=== PATIENT | female | born 1985 | race Caucasian/White ===

== ENCOUNTER 2023-12-12 14:57 | Inpatient (IN) | payer OTHER ==
[~2023-12-12] VITALS: Ht 157.5 cm; Wt 57.3 kg
[2023-12-12 16:21] LABS: BASOPHILS % (AUTO) 0.6 % (0.0-2.0); EOSINOPHILS % (AUTO) 0.8 % (1.0-6.0); HEMATOCRIT 43.6 % (36-46); HEMOGLOBIN 14.8 g/dL (12.0-16.0); LYMPHOCYTES # (AUTO) 2.6 K/uL (1.0-4.8); LYMPHOCYTES % (AUTO) 38.6 % (22.0-44.0); MEAN CORPUSCULAR HEMOGLOBIN 31.3 pg (26.0-34.0); MEAN CORPUSCULAR HGB CONC 33.9 G/dL (31.0-37.0); MEAN CORPUSCULAR VOLUME 93 fL (80-100); MONOCYTES # (AUTO) 0.5 K/uL (0.1-1.0); NEUTROPHILS # (AUTO) 3.6 K/uL (1.8-7.7); PLATELET COUNT (AUTO) 220 K/uL (150-450); RED BLOOD CELL COUNT(AUTO) 4.71 MIL/uL (4.00-5.20); RED CELL DISTRIBUTION WIDTH 15.9 % (11.5-14.5); WHITE BLOOD COUNT (AUTO) 6.8 K/uL (4.5-11.0)
[2023-12-12 16:34] LABS: ALANINE AMINOTRANSFERASE 23 U/L (12-78); ALBUMIN 3.5 g/dL (3.4-5.0); ALKALINE PHOSPHATASE 142 U/L (46-116); ANION GAP 15 mmol/L (8-16); ASPARTATE AMINOTRANSFERASE 36 U/L (15-37); BILIRUBIN,TOTAL 0.4 mg/dL (0.1-1.0); CALCIUM, TOTAL 8.1 mg/dL (8.8-10.5); CARBON DIOXIDE 25 mmol/L (22-29); CHLORIDE 104 mmol/L (98-107); CREATININE 0.83 mg/dL (0.60-1.30); GLOMERULAR FILTR. RATE CALC > 60 mL/min (>60); GLUCOSE,RANDOM 150 mg/dL (70-110); SODIUM SERUM 144 mmol/L (136-145); TOTAL PROTEIN, SERUM 8.2 g/dL (6.4-8.2); UREA NITROGEN, BLOOD 5 mg/dL (7-18)
[2023-12-12 16:38] LABS: POTASSIUM 2.8 mmol/L (3.5-5.1)
[2023-12-12 16:46] LABS: ALCOHOL, BLOOD (SERUM) 326 mg/dL (0-10)
[2023-12-12] MEDS: ACETAMINOPHEN 500 MG TABLET PO ONE (17:18)
[2023-12-12] MEDS: MAGNESIUM SULFATE 2 GM/WATER 50 ML IV ONE (17:18)
[2023-12-12] MEDS: METOCLOPRAMIDE HCL 5 MG/ML 2 ML VIAL IVP ONE (17:18)
[2023-12-12] MEDS: POTASSIUM CHL 10 MEQ/WATER 50 ML IV SCH (17:18)
[2023-12-12] MEDS: THIAMINE 100 MG/ML 2 ML VIAL IVP ONE (17:19)
[2023-12-12] MEDS: LORazepam 2 MG/ML VIAL IVP ONE (17:19)
[2023-12-12] MEDS: SODIUM CHLORIDE 0.9% 1,000 ML IV ONE (17:50)
[2023-12-12] MEDS ORDERED: SERT-439 PO (19:35)
[2023-12-12] MEDS ORDERED: HYDR-4527 PO (19:35)
[2023-12-12] MEDS ORDERED: QUET50TA24 PO (19:35)
[2023-12-12] MEDS ORDERED: CARV6.2534 PO (19:35)
[2023-12-12] MEDS ORDERED: NICO-803 TD (19:41)
[2023-12-12] MEDS ORDERED: MIRT-92 PO (19:41)
[2023-12-12] MEDS ORDERED: CARV3.1231 PO (19:41)
[2023-12-12] MEDS ORDERED: LANS-78 PO (19:41)
[2023-12-12] MEDS ORDERED: LACT10SO10 PO (19:41)
[2023-12-12] MEDS ORDERED: FOLI-130 PO (19:41)
[2023-12-12] MEDS ORDERED: GABA-1181 PO (19:41)
[2023-12-12] MEDS ORDERED: LINA72CA PO (19:41)
[2023-12-12] MEDS ORDERED: ACAM333T7 PO (19:41)
[2023-12-12 20:30] LABS: AMPHET/METH SCREEN,URINE NEGATIVE (NEGATIVE); BARBITURATE SCREEN, URINE NEGATIVE (NEGATIVE); BENZODIAZEPINES SCREEN,URINE POSITIVE (NEGATIVE); CANNABINOID SCREEN,URINE POSITIVE (NEGATIVE); COCAINE SCREEN,URINE NEGATIVE (NEGATIVE); METHADONE SCREEN, URINE NEGATIVE (NEGATIVE); OPIATE SCREEN,URINE NEGATIVE (NEGATIVE); PHENCYCLIDINE SCREEN,URINE NEGATIVE (NEGATIVE)
[2023-12-12 20:32] LABS: ALCOHOL, URINE DRUG SCREEN POSITIVE (NEGATIVE)
[2023-12-12] MEDS: ONDANSETRON HCL 4 MG/2 ML VIAL IVP PRN (21:26)
[2023-12-12 22:16] VITALS: BP 140/98; PULSE 92; RESP 19; TEMP 98.8; O2SAT 100
[2023-12-12] MEDS: ACETAMINOPHEN 325 MG TABLET PO PRN (22:20)
[2023-12-12 23:00] VITALS: BP 140/98; PULSE 92; RESP 19; TEMP 98.8; O2SAT 100
[2023-12-12] MEDS: LORazepam 2 MG TABLET PO PRN (23:26)
[2023-12-12] MEDS: HEPARIN SODIUM,PORCINE 5,000 UNITS/ML VIAL SQ SCH (23:26)
[2023-12-13] MEDS: 1: MAGNESIUM SULFATE 2 GM, MVI, ADULT NO.1 WITH VIT K 10 ML, THIAMINE 100 MG, FOLIC ACID IV SCH (00:25)
[2023-12-13 05:00] VITALS: BP 123/79; PULSE 94; RESP 20; TEMP 98.5; O2SAT 96
[2023-12-13 06:44] LABS: BASOPHILS % (AUTO) 0.4 % (0.0-2.0); EOSINOPHILS % (AUTO) 0.6 % (1.0-6.0); HEMATOCRIT 35.8 % (36-46); HEMOGLOBIN 12.2 g/dL (12.0-16.0); LYMPHOCYTES # (AUTO) 2.7 K/uL (1.0-4.8); LYMPHOCYTES % (AUTO) 39.3 % (22.0-44.0); MEAN CORPUSCULAR HGB CONC 34.1 G/dL (31.0-37.0); MEAN CORPUSCULAR VOLUME 94 fL (80-100); MONOCYTES # (AUTO) 0.6 K/uL (0.1-1.0); NEUTROPHILS # (AUTO) 3.5 K/uL (1.8-7.7); NEUTROPHILS % (AUTO) 50.7 % (40.0-70.0); RED BLOOD CELL COUNT(AUTO) 3.82 MIL/uL (4.00-5.20); RED CELL DISTRIBUTION WIDTH 15.8 % (11.5-14.5)
[2023-12-13 07:02] LABS: PLATELET COUNT (AUTO) 167 K/uL (150-450)
[2023-12-13 07:13] LABS: ANION GAP 13 mmol/L (8-16); CALCIUM, TOTAL 6.9 mg/dL (8.8-10.5); CARBON DIOXIDE 21 mmol/L (22-29); CHLORIDE 101 mmol/L (98-107); CREATININE 0.74 mg/dL (0.60-1.30); GLOMERULAR FILTR. RATE CALC > 60 mL/min (>60); GLUCOSE,RANDOM 114 mg/dL (70-110); SODIUM SERUM 135 mmol/L (136-145); UREA NITROGEN, BLOOD 3 mg/dL (7-18)
[2023-12-13 07:26] LABS: POTASSIUM 2.9 mmol/L (3.5-5.1)
[2023-12-13] MEDS ORDERED: MAGNESIUM SULFATE 2 GM/WATER 50 ML IV PRN (07:30)
[2023-12-13] MEDS ORDERED: MAGNESIUM SULFATE 4 GM/WATER 100 ML IV PRN (07:30)
[2023-12-13] MEDS ORDERED: MAGNESIUM OXIDE 400 MG TABLET PO PRN (07:30)
[2023-12-13] MEDS: LORazepam 2 MG TABLET PO PRN (08:05)
[2023-12-13] MEDS: POTASSIUM CHL 10 MEQ/WATER 50 ML IV PRN (08:08)
[2023-12-13 09:01] VITALS: BP 110/78; PULSE 94; RESP 18; TEMP 98.4; O2SAT 98
[2023-12-13] MEDS: BUTALBITAL/ACETAMINOPHEN/CAFFEINE 50-325-40 MG TABLET PO ONE (12:15)
[2023-12-13 12:31] VITALS: BP 117/87; PULSE 95; RESP 18; TEMP 98.2; O2SAT 98
[2023-12-13] MEDS ORDERED: SODIUM CHLORIDE 0.9% 1,000 ML ONE (13:59)
[2023-12-13 15:56] VITALS: BP 116/82; PULSE 84; RESP 18; TEMP 99.2; O2SAT 98
[2023-12-13] MEDS: HYDROCODONE/ACETAMINOPHEN 5-325 MG TABLET PO PRN (19:10)
[2023-12-13 19:23] VITALS: BP 122/86; PULSE 86; RESP 18; TEMP 98.1; O2SAT 98
[2023-12-13] MEDS: POTASSIUM CHLORIDE 20 MEQ ER TABLET PO PRN (23:03)
[2023-12-14 00:21] VITALS: BP 116/82; PULSE 66; RESP 18; TEMP 98.3; O2SAT 97
[2023-12-14 04:07] VITALS: BP 110/79; PULSE 73; RESP 18; TEMP 97.7; O2SAT 96
[2023-12-14 06:54] LABS: ANION GAP 12 mmol/L (8-16); BASOPHILS % (AUTO) 0.7 % (0.0-2.0); CALCIUM, TOTAL 7.1 mg/dL (8.8-10.5); CARBON DIOXIDE 21 mmol/L (22-29); CHLORIDE 104 mmol/L (98-107); EOSINOPHILS % (AUTO) 1.7 % (1.0-6.0); GLOMERULAR FILTR. RATE CALC > 60 mL/min (>60); GLUCOSE,RANDOM 86 mg/dL (70-110); HEMATOCRIT 33.8 % (36-46); HEMOGLOBIN 11.4 g/dL (12.0-16.0); LYMPHOCYTES # (AUTO) 1.7 K/uL (1.0-4.8); LYMPHOCYTES % (AUTO) 43.7 % (22.0-44.0); MEAN CORPUSCULAR HEMOGLOBIN 31.8 pg (26.0-34.0); MEAN CORPUSCULAR HGB CONC 33.7 G/dL (31.0-37.0); MEAN CORPUSCULAR VOLUME 94 fL (80-100); MONOCYTES # (AUTO) 0.4 K/uL (0.1-1.0); MONOCYTES % (AUTO) 11.3 % (2.0-9.0); NEUTROPHILS # (AUTO) 1.6 K/uL (1.8-7.7); NEUTROPHILS % (AUTO) 42.6 % (40.0-70.0); PLATELET COUNT (AUTO) 121 K/uL (150-450); POTASSIUM 3.6 mmol/L (3.5-5.1); RED BLOOD CELL COUNT(AUTO) 3.59 MIL/uL (4.00-5.20); RED CELL DISTRIBUTION WIDTH 15.8 % (11.5-14.5); SODIUM SERUM 137 mmol/L (136-145); UREA NITROGEN, BLOOD 2 mg/dL (7-18); WHITE BLOOD COUNT (AUTO) 3.8 K/uL (4.5-11.0)
[2023-12-14 07:19] VITALS: BP 115/75; PULSE 69; RESP 18; TEMP 98; O2SAT 97
[2023-12-14 11:43] VITALS: BP 120/72; PULSE 70; RESP 18; TEMP 98; O2SAT 96
[2023-12-14] MEDS: SERTRALINE HCL 50 MG TABLET PO SCH (12:59)
[2023-12-14] MEDS: NICOTINE 21 MG/24 HOUR PATCH TD SCH (15:40)
[2023-12-14] MEDS: SUMAtriptan SUCCINATE 6 MG/0.5 ML VIAL SQ ONE (15:40)
[2023-12-14 16:07] VITALS: BP 128/88; RESP 18; TEMP 98.2; O2SAT 97
[2023-12-14 20:00] VITALS: BP 129/86; PULSE 94; RESP 18; TEMP 98.7; O2SAT 97
[2023-12-14] MEDS: QUEtiapine FUMARATE 25 MG TABLET PO SCH (20:43)
[2023-12-14] MEDS: MIRTAZAPINE 15 MG TABLET PO SCH (20:43)
[2023-12-15 00:02] VITALS: BP 106/61; PULSE 87; RESP 16; TEMP 98.7; O2SAT 97
[2023-12-15 05:28] VITALS: BP 110/69; PULSE 72; RESP 18; TEMP 98.3; O2SAT 98
[2023-12-15 07:15] VITALS: BP 105/68; PULSE 73; RESP 18; TEMP 98.2; O2SAT 98
[2023-12-15] MEDS: LORazepam 1 MG TABLET PO SCH (08:12)
[2023-12-15 16:14] VITALS: BP 125/93; PULSE 73; RESP 19; TEMP 98.6; O2SAT 98
[2023-12-15] MEDS: SUMAtriptan SUCCINATE 25 MG TABLET PO PRN (17:29)
[2023-12-15 20:17] VITALS: BP 145/103; PULSE 75; RESP 18; TEMP 98.1; O2SAT 99
[2023-12-15] MEDS ORDERED: SODIUM CHLORIDE 0.9% 1,000 ML ONE (21:32)
[2023-12-16 00:07] VITALS: BP 120/76; PULSE 65; RESP 17; TEMP 97.5; O2SAT 97
[2023-12-16 03:36] VITALS: BP 117/72; PULSE 57; RESP 18; TEMP 98.1; O2SAT 98
[2023-12-16 08:15] VITALS: BP 126/76; PULSE 71; RESP 20; TEMP 98.8; O2SAT 100
[2023-12-16] MEDS: LORazepam 1 MG TABLET PO PRN ×2 (11:07)
== END 2023-12-16 15:14 | disposition home or self-care (01) | DRG 54 ==
LOC: EMS 14:57 → EDH 19:32 → 5N 22:00 → 6S 12-15 02:45 → 4E 12-16 03:10
PROVIDERS: ADMIT Internal Medicine; ATTEND Internal Medicine
PROC: GZ56ZZZ Individual Psychotherapy, Supportive (ICD-10-PCS; principal; 2023-12-14)
DX: G43.909 Migraine, unspecified, not intractable, without status migrainosus (principal); D69.6 Thrombocytopenia, unspecified; E44.0 Moderate protein-calorie malnutrition; F33.2 Major depressive disorder, recurrent severe without psychotic features; F10.229 Alcohol dependence with intoxication, unspecified; F10.239 Alcohol dependence with withdrawal, unspecified; E87.6 Hypokalemia; Y90.9 Presence of alcohol in blood, level not specified; R00.0 Tachycardia, unspecified; I10 Essential (primary) hypertension; Z88.2 Allergy status to sulfonamides; Z90.49 Acquired absence of other specified parts of digestive tract; Z68.23 Body mass index [BMI] 23.0-23.9, adult
CPT/HCPCS: 70450; 80048; 80076; 80307; 82040; 83735; 84132; 84703; 85025; 93005; 99285; G0480; J1644; J2060; J2405; J2765; J3030; J3411; J3475; J3480; J3490; J7030

== ENCOUNTER 2024-02-11 19:53 | Emergency (ER) | payer OTHER ==
[~2024-02-11] VITALS: Ht 157.5 cm; Wt 61.8 kg
[~2024-02-11 19:53] MED LIST: ACAM333T7 PO; CARV3.1231 PO; FOLI-130 PO; GABA-1181 PO; HYDR-4527 PO; LACT10SO10 PO; LANS-78 PO; LINA72CA PO; MIRT-92 PO; NICO-803 TD; QUET50TA24 PO; SERT-439 PO
[2024-02-11 20:08] VITALS: TEMP 99.3
[2024-02-11 20:35] LABS: BASOPHILS % (AUTO) 1.1 % (0.0-2.0); EOSINOPHILS % (AUTO) 1.8 % (1.0-6.0); HEMATOCRIT 44.8 % (36-46); LYMPHOCYTES # (AUTO) 4.5 K/uL (1.0-4.8); LYMPHOCYTES % (AUTO) 48.5 % (22.0-44.0); MEAN CORPUSCULAR HEMOGLOBIN 30.7 pg (26.0-34.0); MEAN CORPUSCULAR HGB CONC 33.5 G/dL (31.0-37.0); MEAN CORPUSCULAR VOLUME 92 fL (80-100); MONOCYTES # (AUTO) 0.4 K/uL (0.1-1.0); MONOCYTES % (AUTO) 4.5 % (2.0-9.0); NEUTROPHILS # (AUTO) 4.1 K/uL (1.8-7.7); NEUTROPHILS % (AUTO) 44.1 % (40.0-70.0); PLATELET COUNT (AUTO) 245 K/uL (150-450); RED BLOOD CELL COUNT(AUTO) 4.88 MIL/uL (4.00-5.20); RED CELL DISTRIBUTION WIDTH 14.5 % (11.5-14.5); WHITE BLOOD COUNT (AUTO) 9.3 K/uL (4.5-11.0)
[2024-02-11 20:42] LABS: ANION GAP 15 mmol/L (8-16); CALCIUM, TOTAL 8.4 mg/dL (8.8-10.5); CARBON DIOXIDE 21 mmol/L (22-29); CHLORIDE 104 mmol/L (98-107); GLOMERULAR FILTR. RATE CALC > 60 mL/min (>60); GLUCOSE,RANDOM 102 mg/dL (70-110); POTASSIUM 3.3 mmol/L (3.5-5.1); SODIUM SERUM 140 mmol/L (136-145); UREA NITROGEN, BLOOD 7 mg/dL (7-18)
[2024-02-11 20:48] LABS: ALANINE AMINOTRANSFERASE 24 U/L (12-78); ALBUMIN 3.5 g/dL (3.4-5.0); ALKALINE PHOSPHATASE 120 U/L (46-116); ASPARTATE AMINOTRANSFERASE 42 U/L (15-37); BILIRUBIN,TOTAL 0.3 mg/dL (0.1-1.0); TOTAL PROTEIN, SERUM 8.1 g/dL (6.4-8.2)
[2024-02-11 21:04] LABS: ALCOHOL, BLOOD (SERUM) 463 mg/dL (0-10)
[2024-02-11 22:00] VITALS: BP 132/85; PULSE 88; RESP 14; O2SAT 96
[2024-02-11] MEDS: POTASSIUM CHLORIDE 20 MEQ ER TABLET PO ONE (22:30)
[2024-02-11] MEDS: DICYCLOMINE HCL 10 MG CAPSULE PO ONE (23:21)
[2024-02-11] MEDS: ONDANSETRON 4 MG TABLET PO ONE (23:21)
[2024-02-11] MEDS ORDERED: ONDA-104 PO (23:39)
== END 2024-02-12 01:22 | disposition home or self-care (01) ==
LOC: EMS 19:53
DX: F10.229 Alcohol dependence with intoxication, unspecified (principal); E87.6 Hypokalemia; R10.12 Left upper quadrant pain; F32.A Depression, unspecified; K74.60 Unspecified cirrhosis of liver; F12.90 Cannabis use, unspecified, uncomplicated; F17.210 Nicotine dependence, cigarettes, uncomplicated; Z90.49 Acquired absence of other specified parts of digestive tract; Z88.2 Allergy status to sulfonamides; Y90.8 Blood alcohol level of 240 mg/100 ml or more
CPT/HCPCS: 99284; 80053; 84703; 85025; 36415; 74019; G0480; Q0162